=== PATIENT | female | born 1990 | race Caucasian/White ===

== ENCOUNTER 2016-05-12 21:44 | Emergency (ER) | payer OTHER ==
[~2016-05-12] VITALS: Ht 165.1 cm; Wt 60.0 kg
[2016-05-12 22:47] VITALS: Ht 165.1 cm; Wt 60.0 kg
--- NOTE | 2016-05-13 03:21 | RADRPT ---
PROCEDURE: XR Lumbar Spine, sacrum and coccyx. CLINICAL INDICATION: Pain. TECHNIQUE: X-ray of the lumbar spine, sacrum and coccyx were performed including AP, lateral, and coned L5-S1 views was performed. COMPARISON: No prior studies are available for comparison. FINDINGS: Vertebral body stature and alignment maintained. There is no evidence of fracture or subluxation. IMPRESSION: No evidence of compression fracture. RPTAT: HIKT .Alek De Leon MD, MD Date Time Electronically viewed and signed by .Alek De Leon MD, MD on 05/13/2016 03:21 .T/
--- NOTE | 2016-05-13 03:27 | ERD ---
ER Documentation Chief Complaint Date/Time DATE: 05/13/16 TIME: 03:26 Chief Complaint Tail bone pain X1 week. getting worst HPI 25 year old female presents with CC of low back pain x 1 week. States that one week ago she fell during competitive poll-vaulting and landed directly on her tailbone. Since they she has had pain in this area that is aggravated by sitting and laying on her back. Currently while she is standing she rates the pain a 3/10 in severity. Alleviating factors include taking Ibuprofen, but this only offers her temporary relief. She denies loss of bowel control, urinary incontinence, numbness or tingling in her lower extremities, dysuria, hematuria , and fever. ROS All systems reviewed and are negative except as per history of present illness. Medications Home Meds Active Scripts Naproxen* (Naprosyn*) 500 Mg Tablet, 500 MG PO BID Y for PAIN AND/OR INFLAMMATION, #30 TAB Prov:Rupa Reyes PA-C 05/13/16 Allergies Allergies: Coded Allergies: No Known Allergy (Unverified , 05/12/16) PMhx/Soc Medical and Surgical Hx: pt denies Medical Hx, pt denies Surgical Hx Hx Alcohol Use: No Hx Substance Use: No Hx Tobacco Use: No Physical Exam Vitals Vital Signs Date Time Temp Pulse Resp B/P Pulse Ox O2 Delivery O2 Flow Rate FiO2 05/12/16 22:47 97.7 68 18 140/88 98 Physical Exam GENERAL: The child is well developed and nourished for age, interactive and vigorous appearing. No acute distress and nontoxic. LUNGS: No accessory muscle use. CTAB. No rhonchi, no crackles, no stridor. No signs or symptoms of respiratory distress. No accessory muscle use, no retractions. HEART: Regular rate and rhythm. No murmurs, clicks, rubs or gallops. ABDOMEN: No guarding, soft and nontender BACK: No CVA tenderness, and tenderness directly over the coccyx. No ecchymosis , erythema, or edema. EXTREMITIES: Full range of motion in all extremities. NEURO: Negative straight leg raise bilaterally. 5/5 strength in BLE. Cranial nerves are grossly intact. Normal mental status for age. Good muscle tone. SKIN: There is no apparent rash, petechiae, erythema or swelling. Good skin turgor. Results 24 hrs PROCEDURE: XR Lumbar Spine, sacrum and coccyx. CLINICAL INDICATION: Pain. TECHNIQUE: X-ray of the lumbar spine, sacrum and coccyx were performed including AP, lateral, and coned L5-S1 views was performed. COMPARISON: No prior studies are available for comparison. FINDINGS: Vertebral body stature and alignment maintained. There is no evidence of fracture or subluxation. IMPRESSION: No evidence of compression fracture. RPTAT: HIKT .Alek De Leon MD, MD Date Time Electronically viewed and signed by .Alek De Leon MD, on 05/13/2016 03:21 .T/ CC: Rupa Reyes PA-C Procedures/MDM Patient complained of pain over her coccyx after falling on this area during a sports injury one week ago. On exam there was no erythema, ecchymosis, or edema anywhere on her back. However, she was tender to palpation of the coccyx. She has full range of motion in bilateral lower extremities. I ordered an XR of the lumbar spine to rule out fracture and any argenis abnormality. Lumbar Spine XR (interpretation by radiologist): IMPRESSION: No evidence of compression fracture. I discussed these results with the patient and explained that she had likely suffered a coccyx contusion. I suggested that she continue to ice the area and avoid sitting for long periods of time. She can use a donut pillow or neck pillow to avoid putting direct weight on coccyx when sitting. I prescribed 500mg Naproxen for pain relief. At this time I have low suspicion for cauda equina syndrome, epidural abscess, osteomyelitis, cord compression, fracture, nephrolithiasis, and pyelonephritis. Patient is stable for discharge and outpatient management, advised to follow-up with PCP in 1-2 days. Departure Diagnosis: Primary Impression: Injury of back Encounter type: initial encounter Qualified Code: S39.92XA - Injury of back , initial encounter Additional Impression: Coccyx contusion Encounter type: initial encounter Qualified Code: S30.0XXA - Coccyx contusion, initial encounter Condition: Good Patient Instructions: Contusion, Coccyx/Sacrum Rupa Reyes PA-C May 13, 2016 03:27
[2016-05-13] MEDS ORDERED: NAPR-260 PO (03:28)
== END 2016-05-13 03:50 | disposition home or self-care (01) ==
LOC: FTE 21:44
DX: S39.92XA Unspecified injury of lower back, initial encounter (principal); S30.0XXA Contusion of lower back and pelvis, initial encounter; W17.89XA Other fall from one level to another, initial encounter; Y92.9 Unspecified place or not applicable
CPT/HCPCS: 72100; Z7502